=== PATIENT | female | born 1995 | race Caucasian/White ===

== ENCOUNTER 2018-10-23 22:16 | Inpatient (IN) | payer MEDICAID ==
[2018-10-23] MEDS ORDERED: MISOPROSTOL 200 MCG TAB PR (23:30)
[2018-10-23] MEDS ORDERED: OXYTOCIN 30 UNITS/LR 500 ML IV ×2 (23:30)
[2018-10-23] MEDS ORDERED: BUTORPHANOL 2 MG INJ IV (23:30)
[2018-10-23] MEDS ORDERED: LIDOCAINE 1% (MPF) 30 ML INJ INJ (23:30)
[2018-10-23] MEDS ORDERED: CARBOPROST 250 MCG INJ IM (23:30)
[2018-10-23] MEDS: LACTATED RINGER'S 1,000 ML IV (23:50)
[2018-10-23 23:53] LABS: ADD MAN DIFF? NO
[2018-10-24] LABS: BASOPHIL # 0.1 10^3/ul (0.0-0.1); BASOPHILS % 0.4 % (0.0-2.0); EOSINOPHILS # 0.1 10^3/ul (0.0-0.5); EOSINOPHILS % 0.6 % (0.0-7.0); HEMATOCRIT 34.3 % (37.0-47.0); LYMPHOCYTES % 14.4 % (15.0-51.0); MEAN CORPUSCULAR HGB CONC 32.1 g/dl (32.0-37.0); MEAN CORPUSCULAR VOLUME 81.1 fl (82.0-101.0); MEAN PLATELET VOLUME 10.5 fl (7.4-10.4); MONOCYTE # 1.2 10^3/ul (0.3-0.9); MONOCYTES % 8.3 % (0.0-11.0); NEUTROPHIL # 10.6 10^3/ul (1.6-7.5); NEUTROPHILS % 75.4 % (39.0-77.0); PLATELET COUNT 282 10^3/UL (140-415); RED BLOOD COUNT 4.23 10^6/ul (4.20-5.40); RED CELL DISTRIBUTION WIDTH 15.4 % (11.5-14.5)
[2018-10-24] LABS: WHITE BLOOD COUNT 14.1 10^3/ul (4.8-10.8)
[2018-10-24 00:18] LABS: INR 0.87; PROTIME 11.9 Sec (11.9-14.9); PT RATIO 0.9
[2018-10-24 00:19] LABS: PARTIAL THROMBOPLASTIN TIME 29.3 Sec (23.0-35.0)
[2018-10-24] MEDS: AMPICILLIN 2 GM/NS (PMX) 100 ML IV (00:34)
[2018-10-24 00:43] LABS: HEPATITIS B SURFACE ANTIGEN NEGATIVE (NEGATIVE)
[2018-10-24] MEDS ORDERED: FENTAnyl 2MCG/ML-ROPIV 0.2% 100 ML (01:13)
[2018-10-24] MEDS ORDERED: FENTAnyl 50 MCG/ML VIAL (01:14)
[2018-10-24] MEDS: OXYTOCIN 30 UNITS/LR 500 ML IV ×2 (03:21→06:58)
[2018-10-24] MEDS: AMPICILLIN 1 GM/NS (PMX) 50 ML IV (03:30)
[2018-10-24] MEDS: IBUPROFEN 600 MG TAB PO ×4 (04:14→17:46)
[2018-10-24] MEDS: METHYLERGONOVINE 0.2 MG INJ IM (04:48)
[2018-10-24] MEDS ORDERED: CARBOPROST 250 MCG INJ IM (05:30)
[2018-10-24] MEDS ORDERED: MISOPROSTOL 200 MCG TAB PR (05:30)
[2018-10-24] MEDS ORDERED: METHYLERGONOVINE 0.2 MG INJ IM (05:30)
[2018-10-24] MEDS ORDERED: ZOLPIDEM 5 MG TAB PO (05:30)
[2018-10-24] MEDS ORDERED: OXYCODONE/ASPIRIN (4.88/325) TAB PO ×2 (05:30)
[2018-10-24] MEDS ORDERED: OXYTOCIN 30 UNITS/LR 500 ML IV (05:30)
[2018-10-24] MEDS: BENZOCAINE 20% 56 ML SPRAY TOP (06:57)
[2018-10-24] MEDS: WITCH HAZEL/GLYCERIN PAD PR (06:57)
[2018-10-24] MEDS: SENNA/DOCUSATE NA (8.6MG/50MG) TAB PO ×2 (10:25→21:25)
[2018-10-24 15:37] LABS: RAPID PLASMA REAGIN NONREACTIVE (NR)
[2018-10-24] MEDS: CEPHALEXIN 500 MG CAP PO ×2 (17:45→23:49)
[2018-10-25] MEDS: IBUPROFEN 600 MG TAB PO ×4 (04:19→18:10)
[2018-10-25] MEDS: CEPHALEXIN 500 MG CAP PO ×3 (05:57→18:09)
[2018-10-25] MEDS: LANOLIN HPA 1 PKT TOP (08:23)
[2018-10-25 08:29] LABS: ADD MAN DIFF? NO
[2018-10-25 08:40] LABS: WHITE BLOOD COUNT 12.5 10^3/ul (4.8-10.8)
[2018-10-25 08:40] LABS: BASOPHIL # 0.1 10^3/ul (0.0-0.1); BASOPHILS % 0.6 % (0.0-2.0); EOSINOPHILS # 0.2 10^3/ul (0.0-0.5); EOSINOPHILS % 1.4 % (0.0-7.0); HEMATOCRIT 30.5 % (37.0-47.0); HEMOGLOBIN 9.6 g/dl (12.0-16.0); LYMPHOCYTES # 3.3 10^3/ul (0.8-2.9); LYMPHOCYTES % 25.9 % (15.0-51.0); MEAN CORPUSCULAR HEMOGLOBIN 26.2 pg (29.0-33.0); MEAN CORPUSCULAR HGB CONC 31.5 g/dl (32.0-37.0); MEAN CORPUSCULAR VOLUME 83.1 fl (82.0-101.0); MONOCYTE # 0.9 10^3/ul (0.3-0.9); MONOCYTES % 6.8 % (0.0-11.0); NEUTROPHILS % 63.8 % (39.0-77.0); PLATELET COUNT 235 10^3/UL (140-415); RED BLOOD COUNT 3.67 10^6/ul (4.20-5.40); RED CELL DISTRIBUTION WIDTH 15.7 % (11.5-14.5)
[2018-10-25] MEDS: SENNA/DOCUSATE NA (8.6MG/50MG) TAB PO ×2 (09:29→22:11)
[2018-10-26] MEDS: CEPHALEXIN 500 MG CAP PO ×3 (00:13→12:43)
[2018-10-26] MEDS: IBUPROFEN 600 MG TAB PO ×3 (00:14→12:43)
[2018-10-26] MEDS: SENNA/DOCUSATE NA (8.6MG/50MG) TAB PO (11:19)
[2018-10-26] MEDS: DIPHTH/TET/ACEL PERTUSS (ADULT) 0.5 ML VIAL IM* (11:19)
== END 2018-10-26 15:00 | disposition home or self-care (01) | DRG 807 ==
LOC: OBT 22:16 → L-D 10-24 01:04 → PP1 10-24 05:28 → OBT 23:20 → L-D 23:20
PROVIDERS: Obstetrics & Gynecology
PROC: 10E0XZZ Delivery of Products of Conception, External Approach (ICD-10-PCS; principal; 2018-10-24)
PROC: 0HQ9XZZ Repair Perineum Skin, External Approach (ICD-10-PCS; 2018-10-24)
DX: O48.0 Post-term pregnancy (principal); O69.81X0 Labor and delivery complicated by cord around neck, without compression, not applicable or unspecified; O70.0 First degree perineal laceration during delivery; Z37.0 Single live birth; Z3A.40 40 weeks gestation of pregnancy
CPT/HCPCS: 62322; 76815; 76818; 85025; 85610; 85730; 86592; 86850; 86900; 86901; 87340; 99464